=== PATIENT | female | born 1980 | race Caucasian/White ===

== ENCOUNTER 2018-07-25 09:16 | Observation (INO) | payer OTHER ==
[2018-07-25] MEDS ORDERED: LIDOCAINE 1% 2 ML INJ ID PRN (09:24)
[2018-07-25] MEDS ORDERED: LR 1,000 ML IV ONE (09:24)
--- NOTE | 2018-07-25 09:42 | PDHPUP ---
History & Physical Update H&P update statement: This history and physical update is based on an assessment of the patient which was completed after admission or registration (within 24 hours), but prior to the surgery/procedure. H&P update: H&P reviewed & patient examined, no change in patient's condition since H&P completed
[2018-07-25] MEDS ORDERED: BUPIVACAINE/EPI 0.5% 30 ML SDV ONE (09:47)
[2018-07-25] MEDS ORDERED: ceFAZolin 2 GM/DEXTROSE 100 ML IV ONE ×2 (09:52→09:56)
[2018-07-25] MEDS ORDERED: MIDAZOLAM 2 MG/2 ML VIAL IVP ONE (10:06)
--- NOTE | 2018-07-25 10:06 | PDANEPAE ---
ANE History of Present Illness 38 year old for hyterectomy ANE Past Medical History - Cardiovascular History Hx Hypertension: No Hx Arrhythmias: No Hx Chest Pain: No Hx Coronary Artery / Peripheral Vascular Disease: No Hx CHF / Valvular Disease: No Hx Palpitations: No - Pulmonary History Hx COPD: No Hx Asthma/Reactive Airway Disease: Yes Hx Recent Upper Respiratory Infection: No Hx Oxygen in Use at Home: No Hx Sleep Apnea: No Sleep Apnea Screening Result - Last Documented: Negative Pulmonary History Comment: exercise/allergy induced asthma - Neurologic History Hx Cerebrovascular Accident: No Hx Seizures: No Hx Dementia: No Neurologic History Comment: migraine - Endocrine History Hx Diabetes: No - Renal History Hx Renal Disorders: Yes Renal History Comment: hx kidney stones. 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 endometriosis - Chronic Pain History Chronic Pain: Yes (migraines >15 days/month) - Surgical History Prior Surgeries: cholecystectomy. appedenctomy. tubal ligation. left bunionectomy. endometrial ablation. LEEP procedure ANE Review of Systems Review of systems is: negative (migraine this am) Review of Systems: - Exercise capacity METS (RN): 4 METS ANE Patient History - Allergies Allergies/Adverse Reactions: No Known Allergies Allergy (Verified 07/23/18 11:40) - Home Medications Home Medications: Aimovig Autoinjector PRN 07/23/18 [Last Taken 07/08/18] Imitrex PRN 07/23/18 [Last Taken 07/25/18] Proair Hfa PRN 07/23/18 [Last Taken 06/27/18] Tizanidine HCl 07/23/18 [Last Taken 07/24/18 22:30] Topamax 07/23/18 [Last Taken 07/24/18 22:30] Treximet 85-500 mg Tablet PRN 07/23/18 [Last Taken 07/18/18] Zembrace Symtouch PRN 07/23/18 [Last Taken 06/27/18] traZODONE 100MG (*) 07/23/18 [Last Taken 07/24/18 22:30] - NPO status NPO Since - Liquids (Date): 07/25/18 NPO Since - Liquids (Time): 08:15 NPO Since - Solids (Date): 07/24/18 NPO Since - Solids (Time): 21:30 - Smoking Hx Smoking Status: Former smoker - Family Anes Hx Family Hx Anesthesia Complications: none ANE Labs/Vital Signs - Vital Signs Blood Pressure: 110/56 Heart Rate: 87 Respiratory Rate: 10 O2 Sat (%): 97 Height: 152.4 cm Weight: 61.689 kg ANE Physical Exam - Airway Neck exam: FROM Mallampati Score: Class 1 Mouth exam: normal dental/mouth exam - Pulmonary Pulmonary: no respiratory distress - Cardiovascular Cardiovascular: regular rate and rhythym - ASA Status ASA Status: II ANE Anesthesia Plan Anesthesia Plan: general endotracheal anesthesia
[2018-07-25] MEDS ORDERED: PROPOFOL 200 MG/20 ML VIAL ONE (10:27)
[2018-07-25] MEDS ORDERED: fentaNYL 250 MCG/5 ML INJ ONE (10:27)
[2018-07-25] MEDS ORDERED: ONDANSETRON DISINTEGRATING 4 MG TAB PO PRN (12:03)
[2018-07-25] MEDS ORDERED: ONDANSETRON 4 MG/2 ML VIAL IVP PRN ×2 (12:03→12:08)
[2018-07-25] MEDS ORDERED: OXYCODONE/APAP 5/325 TAB PO PRN (12:03)
[2018-07-25] MEDS ORDERED: PROMETHAZINE HCL 25 MG/ML INJ IVP PRN ×2 (12:03→12:08)
[2018-07-25] MEDS ORDERED: NALOXONE HCL 0.4 MG/ML INJ IVP PRN (12:08)
[2018-07-25] MEDS ORDERED: HYDROmorphONE/DILAUDID 2 MG/ML INJ IVP PRN (12:08)
[2018-07-25] MEDS ORDERED: ALBUTEROL 3 ML DEYVIAL IH PRN (12:08)
--- NOTE | 2018-07-25 12:08 | POSTOPPROG ---
Post Op Note Date of Operation: 07/25/18 Surgeon: Liu Warner Curing Supervisor: Janeth Jin Anesthesia: GET(General Endotracheal) Pre-op Diagnosis: Endometriosis, stress incontinence Post-op Diagnosis: Same Procedure: Robotic hyst/BSO, excise endo, TOT sling Findings: Endo Inf/Abcess present in the surg proc area at time of surgery?: No EBL: Minimal Complications: None
--- NOTE | 2018-07-25 12:09 | POSTANESTH ---
Post Anesthetic Evaluation Cardiovascular Status: Normal, Stable Respiratory Status: Normal, Stable Level of Consciousness/Mental Status: Can Participate in Eval Pain Control: Inadeq, Add Tx Required Nausea/Vomiting Control: Adequate, Prn Tx Ordered Complications Possibly Related to Anesthesia: None Noted
[2018-07-25] MEDS ORDERED: HYDROmorphONE/DILAUDID 1 MG/ML INJ ONE (12:10)
[2018-07-25] MEDS ORDERED: fentaNYL 100 MCG/2 ML INJ ONE ×2 (12:10→14:23)
[2018-07-25] MEDS: fentaNYL 100 MCG/2 ML INJ IVP PRN ×3 (12:11→14:26)
[2018-07-25] MEDS: HYDROmorphONE/DILAUDID 1 MG/ML INJ IVP PRN ×5 (12:13→17:43)
[2018-07-25] MEDS ORDERED: LR 1,000 ML IV SCH (12:30)
[2018-07-25] MEDS: DIAZEPAM 10 MG/2 ML SYR IVP PRN ×2 (12:30→12:55)
[2018-07-25] MEDS ORDERED: DIAZEPAM 5 MG/ML 1 ML SYR ONE (12:33)
[2018-07-25] MEDS ORDERED: HYDROCODONE/APAP 5/325 TAB ONE (12:57)
[2018-07-25] MEDS: HYDROCODONE/APAP 5/325 TAB PO PRN ×3 (12:58→21:28)
[2018-07-25] MEDS ORDERED: ONDANSETRON 4 MG/2 ML VIAL ONE (13:41)
[2018-07-25] MEDS: SIMETHICONE 80 MG TAB CHEW PO SCH ×3 (16:06→21:29)
[2018-07-25] MEDS: GABAPENTIN 300 MG CAP PO SCH ×2 (17:08→21:29)
[2018-07-25] MEDS: KETOROLAC 30 MG/1 ML SDV IVP SCH ×2 (17:39→22:57)
[2018-07-25] MEDS: DOCUSATE SODIUM 100 MG CAP PO SCH (20:36)
[2018-07-25] MEDS ORDERED: TOPIRAMATE 50 MG PO SCH (21:00)
[2018-07-25] MEDS ORDERED: traZODone 100 MG TAB PO SCH (21:00)
[2018-07-26] MEDS: HYDROmorphONE/DILAUDID 1 MG/ML INJ IVP PRN (01:15)
[2018-07-26] MEDS ORDERED: oxyCODONE IR 5 MG TAB PO PRN (01:44)
[2018-07-26] MEDS: KETOROLAC 30 MG/1 ML SDV IVP SCH ×2 (06:22→12:21)
[2018-07-26] MEDS: SIMETHICONE 80 MG TAB CHEW PO SCH ×2 (06:22→12:30)
[2018-07-26] MEDS ORDERED: ESTRADIOL VIVELLE 0.1 MG PATCH TD ONE (09:00)
[2018-07-26] MEDS ORDERED: ESTRADIOL 1 MG TAB PO SCH (09:00)
[2018-07-26] MEDS: GABAPENTIN 300 MG CAP PO SCH ×2 (09:07→16:15)
[2018-07-26] MEDS: HYDROCODONE/APAP 5/325 TAB PO PRN ×2 (09:07→13:14)
[2018-07-26] MEDS: DOCUSATE SODIUM 100 MG CAP PO SCH (09:09)
--- NOTE | 2018-07-26 11:21 | GDS ---
DISCHARGE DIAGNOSES: 1. Uterine prolapse. 2. Endometriosis. 3. Dysmenorrhea. 4. Stress urinary incontinence. PROCEDURES: 1. Robotic-assisted total laparoscopic hysterectomy, bilateral salpingo-oophorectomy. 2. Excision of endometriosis. 3. Uterosacral ligament colpopexy. 4. Bilateral ureterolysis. 5. Transobturator sling. 6. Cystoscopy. HISTORY/HOSPITAL COURSE: The patient has a history painful menses and stress urinary incontinence. She was taken to the operating room on 07/25/2018, where she underwent the above-mentioned procedures without complications. Her postoperative course was uneventful. The morning after surgery, she was ambulating, voiding, and tolerating a general diet. She was discharged home on postoperative day #1 in good condition. Medi cations, included [place] and ibuprofen for pain and estradiol 0.1 mg patch for hormone replacement. S he has a followup appointment 2 weeks after discharge in the office. /[id number]/MODL
--- NOTE | 2018-07-26 11:21 | GOP ---
DATE OF OPERATION: 07/25/2018 SURGEON: Liu Warner MD WORKING MANAGER: Janeth Jin CFA. ANESTHESIA: General. PREOPERATIVE DIAGNOSIS: 1. Dysmenorrhea. 2. Endometriosis. 3. Uterine prolapse. 4. Stress urinary incontinence. POSTOPERATIVE DIAGNOSIS: 1. Dysmenorrhea. 2. Endometriosis. 3. Uterine prolapse. 4. Stress urinary incontinence. PROCEDURE PERFORMED: 1. Robotic-assisted total laparoscopic hysterectomy, bilateral salpingo-oophorectomy. 2. Excision of endometriosis in posterior cul-de-sac bilateral ovarian fossa. 3. Bilateral ureterolysis. 4. Uterosacral ligament colpopexy. 5. Transobturator sling. 6. Cystoscopy. FINDINGS: SPECIMENS: 1. Uterus, tubes, and ovaries. 1. Pelvic peritoneum with endometriosis. 2. ESTIMATED BLOOD LOSS: Scant. DESCRIPTION OF PROCEDURE: The patient was taken to the operating room where she was identified. Gen eral anesthesia was administered and found to be adequate. She was put in the lithotomy position and prepared and draped in normal sterile fashion. A [place] uterine manipulator was placed into the endo metrial cavity and sutured to the cervix. A King catheter was then placed. A 1 cm infraumbilical incision was made with a scalpel. The Veress needle with the CO2 gas flowing w as advanced into the peritoneal cavity. The abdomen was then insufflated with carbon dioxide gas. T he 12 mm trocar followed by the laparoscope was then inserted. The upper abdomen was unremarkable. There was no evidence of endometriosis on either diaphragm, liver, stomach, or upper abdominal bowel. Two lateral ports were placed on the right and 1 on the left under direct visualization. She then was placed in Trendelenburg position and the [place] robot docked on the left side. The instruments were then brought into the abdominal cavity under direct visualization. The patient was found to have endometriosis in the posterior cul-de-sac, bilateral ovarian fossae, an d overlying both uterosacral ligaments. She also had disease on the serosal surface of the uterus an d ovaries. The posterior cul-de-sac peritoneum was excised from the distal rectum up to the serosal surface of the cervix and laterally to the uterosacral ligaments. A bilateral ureterolysis was requi red to excise the endometriosis overlying both ureters. The pelvic brims were incised. The ureters were gently dissected free and lateralized off the overlying peritoneum in front of the bladder. Thi s was accomplished and the entire ovarian fossa, peritoneum, and endometriosis were completely excise d. The left round ligament was divided. The infundibulopelvic vessels on the left were skeletonized, ca uterized, and transected. The broad ligament was then incised over the left uterine vessels and acro ss the cervix. The bladder was gently dissected off the cervix and upper vagina. The left uterine v asculature was then transected. The exact same procedure was performed on the patient's right side. A circumferential colpotomy incision was then made with the hot [place], and all specimens were remov ed through the vagina. The vaginal cuff was then closed with a running suture of 0 V-Loc 180. A kristi ateral uterosacral ligament colpopexy was performed by attaching the lateral aspect of the cuff to th e ipsilateral uterosacral ligaments near the coccygeal-sacrospinous ligament complexes. The pelvis w as then irrigated with sterile saline, and hemostasis was present. The robot was then undocked. The fascia was closed with 0 Vicryl, skin with 4-0 Monocryl and Steri-Strips. A mid urethral incision was then made with the scalpel. Tunnels were created bilaterally out toward the obturator internus muscles. Skin incisions were made over the obturator notches. The Halo troca r was placed through the left skin incision, redirected around the ischial pubic rami and down throug h the vaginal incision using a vaginal finger as a guide. The sling was then attached and brought ou t along the same course. The exact same procedure was performed on the patient's right side. The sl ing was then adjusted to allow a small mid urethral gap. The vaginal sling was closed with 2-0 Vicry l, the skin with 4-0 Monocryl. Cystoscopy was then performed. Both ureters had vigorous jets of urine. There was no evidence of bl adder nor urethral injury seen. No mesh nor suture was seen within the bladder nor the urethra. Ane sthesia was then reversed. The patient taken to PACU awake in stable condition. COMPLICATIONS: None. DISPOSITION: Patient stable to PACU. /[id number]/MODL
[2018-07-26 12:03] VITALS: BP 105/63
[2018-07-26] MEDS ORDERED: IBUPROFEN 600 MG TAB PO PRN (12:27)
== END 2018-07-26 16:24 | disposition home or self-care (01) ==
LOC: F3N 09:16 → FOB 15:10
PROVIDERS: ADMIT Obstetrics & Gynecology; ATTEND Obstetrics & Gynecology
PROC: 0UT2FZZ Resection of Bilateral Ovaries, Via Natural or Artificial Opening With Percutaneous Endoscopic Assistance (ICD-10-PCS; principal; 2018-07-25 11:15)
PROC: 8E0W4CZ Robotic Assisted Procedure of Trunk Region, Percutaneous Endoscopic Approach (ICD-10-PCS; principal; 2018-07-25 11:15)
PROC: 0TUC0JZ Supplement Bladder Neck with Synthetic Substitute, Open Approach (ICD-10-PCS; principal; 2018-07-25 11:15)
PROC: 0UT9FZZ Resection of Uterus, Via Natural or Artificial Opening With Percutaneous Endoscopic Assistance (ICD-10-PCS; principal; 2018-07-25 11:15)
PROC: 0UT7FZZ Resection of Bilateral Fallopian Tubes, Via Natural or Artificial Opening With Percutaneous Endoscopic Assistance (ICD-10-PCS; principal; 2018-07-25 11:15)
PROC: 0TJ98ZZ Inspection of Ureter, Via Natural or Artificial Opening Endoscopic (ICD-10-PCS; principal; 2018-07-25 11:15)
DX: N80.3 Endometriosis of pelvic peritoneum (principal); N92.0 Excessive and frequent menstruation with regular cycle; N94.6 Dysmenorrhea, unspecified; N39.3 Stress incontinence (female) (male); Z87.442 Personal history of urinary calculi; F41.9 Anxiety disorder, unspecified; G43.909 Migraine, unspecified, not intractable, without status migrainosus
CPT/HCPCS: 57288; 57425; 58571; G0378; C1771; J0690; J1170; J1885; J2250; J2405; J2550; J2704; J3010; J3360